=== PATIENT | male | born 1970 | race Caucasian/White ===

== ENCOUNTER 2018-12-25 19:00 | Emergency (ER) | payer SELFPAY ==
[~2018-12-25] VITALS: Ht 175.3 cm; Wt 74.8 kg
[2018-12-25 19:02] VITALS: BP 144/93
--- NOTE | 2018-12-25 19:02 | NUR ---
PATIENT WAS TAKEN TO BED 1
--- NOTE | 2018-12-25 19:15 | NUR ---
48 Y/O MALE BIB A FROM HOME. PRESENTS TO ED, C/O VOMITTING BLOOD X1. PT STATES HE HAS BEEN DRINKING FOR THE PAST 3 WEEKS AND NOT EATING. STARTED HAVING N/V 3 DAYS AGO WITH BLOOD. PT C/O ABDOMINAL PAIN. BS ACTIVE X4 QUADRANTS. LAST DRINK WAS YESTERDAY. PT DRINKS "3 BEERS A DAY". PT VSS. ERMD AWARE. WILL CONTINUE TO MONITOR.
[2018-12-25] MEDS ORDERED: ONDANSETRON 4 MG/2 ML VIAL IVP ONE (19:30)
[2018-12-25] MEDS ORDERED: THIAMINE 200 MG/2 ML VIAL IM ONE (19:30)
[2018-12-25] MEDS ORDERED: NACL 0.9% 2,000 ML IV ONE (19:30)
[2018-12-25] MEDS ORDERED: FOLIC ACID 1 MG TAB PO ONE (19:30)
--- NOTE | 2018-12-25 19:45 | NUR ---
PT STATES HE WANTS TO LEAVE AMA. DR LUIS SEEN AND SPOKE WITH PT. EDUCATED PT REGARDING LEAVING AMA. PT VERBALIZED UNDERSTANDING OF TEACHING. PT SIGNED AMA PAPERWORK.
== END 2018-12-25 19:45 | disposition left against medical advice (07) ==
LOC: MED 19:00
DX: F10.129 Alcohol abuse with intoxication, unspecified (principal); K92.0 Hematemesis
CPT/HCPCS: 99281